=== PATIENT | female | born 1965 | race Caucasian/White ===

== ENCOUNTER 2016-12-05 10:55 | Emergency (ER) | payer BC ==
[2016-12-05 13:37] VITALS: BP 131/76
--- NOTE | 2016-12-05 13:44 | UC ---
UC General HPI - HPI Summary HPI Summary: Patient hs had flu like symptoms, sore throat cough, body ahces for the past few days, yesterday felt a little better but worse today. she is afebrile - History of Current Complaint Chief Complaint: UCRespiratory Stated Complaint: FLU SYMPTOMS Time Seen by Provider: 12/05/16 13:20 Hx Obtained From: Patient Onset/Duration: Sudden Onset, Lasting Days Timing: Constant Onset Severity: Moderate Current Severity: Moderate Associated Signs & Symptoms: Positive: Headache - Allergy/Home Medications Allergies/Adverse Reactions: Allergies Allergy/AdvReac Type Severity Reaction Status Date / Time No Known Allergies Allergy Verified 12/05/16 13:30 PMH/Surg Hx/FS Hx/Imm Hx Previously Healthy: Yes - Surgical History Surgical History: Yes Surgery Procedure, Year, and Place: tonsils, appy arthroscopic b/ knees - Family History Known Family History: Positive: Hypertension - Social History Alcohol Use: Occasionally Substance Use Type: None Smoking Status (MU): Never Smoked Tobacco - Immunization History Most Recent Tetanus Shot: unknown Review of Systems Constitutional: Fatigue Skin: Negative Eyes: Negative ENT: Sore Throat, Ear Ache, Nasal Discharge Respiratory: Cough Cardiovascular: Negative Gastrointestinal: Negative Genitourinary: Negative Motor: Negative Neurovascular: Negative Musculoskeletal: Myalgia Neurological: Headache Psychological: Negative All Other Systems Reviewed And Are Negative: Yes Physical Exam Triage Information Reviewed: Yes Appearance: Well-Nourished, Ill-Appearing, Pain Distress Vital Signs: Initial Vital Signs Temp 98.7 F 12/05/16 13:33 Pulse 82 12/05/16 13:33 Resp 18 12/05/16 13:33 BP 131/76 12/05/16 13:33 Pulse Ox 100 12/05/16 13:33 Vital Signs Reviewed: Yes Eye Exam: Normal Eyes: Positive: Conjunctiva Clear ENT Exam: Normal ENT: Positive: Pharyngeal erythema, Nasal congestion, TM red Dental Exam: Normal Neck exam: Normal Neck: Positive: Supple, Nontender, No Lymphadenopathy Respiratory Exam: Normal Respiratory: Positive: Chest non-tender, No respiratory distress, No accessory muscle use, Wheezing, Inspiration Cardiovascular Exam: Normal Cardiovascular: Positive: RRR, No Murmur, Pulses Normal Abdominal Exam: Normal Abdomen Description: Positive: Nontender, No Organomegaly, Soft Bowel Sounds: Positive: Present Musculoskeletal Exam: Normal Musculoskeletal: Positive: Strength Intact, ROM Intact, No Edema Neurological Exam: Normal Neurological: Positive: Alert, Muscle Tone Normal Psychological Exam: Normal Skin Exam: Normal Course/Dx - Course Course Of Treatment: hx obtained, exam performed, meds reviewed, rapid flu and strep obtained, flu b positive - Differential Dx - Multi-Symptom Provider Diagnoses: influenza B Discharge - Discharge Plan Condition: Stable Disposition: HOME Prescriptions: guaiFENesin/CODIEN 100MG-10MG* [Robitussin AC 100Mg-10Mg*] 10 ml PO BID #100 ml MDD 20 ml predniSONE TAB* [Deltasone TAB*] 40 mg PO DAILY #10 tab Patient Education Materials: Influenza (ED) Additional Instructions: take the medication as prescribed. Increase your fluid intake and get plenty of rest.
== END 2016-12-05 13:59 | disposition home or self-care (01) ==
LOC: UCCORT 10:55
DX: J11.1 Influenza due to unidentified influenza virus with other respiratory manifestations (principal)
CPT/HCPCS: 87502; 87651; 99212; G0463

== ENCOUNTER 2017-02-14 17:52 | Emergency (ER) | payer BC ==
[2017-02-14 18:00] VITALS: BP 129/76
--- NOTE | 2017-02-14 18:24 | UC ---
Lower Extremity/Ankle HPI - HPI Summary HPI Summary: While mowing was hit by rock in L leg above medial ankle. Area bled and was sore , but whole ankle/leg became more swollen and painful today. Worried about FB and infection. Denies significant hx of skin infection or problems with resistant pathogens. - History of Current Complaint Chief Complaint: MAYELINkin Stated Complaint: LEFT LEG SKIN COMPLAINT Time Seen by Provider: 02/14/17 18:05 Hx Obtained From: Patient Hx Last Menstrual Period: 4-5 yrs ?: No Onset/Duration: Sudden Onset Severity Initially: Mild Severity Currently: Moderate Aggravating Factor(s): Standing, Ambulation Alleviating Factor(s): Rest Able to Bear Weight: Yes - Allergies/Home Medications Allergies/Adverse Reactions: Allergies Allergy/AdvReac Type Severity Reaction Status Date / Time No Known Allergies Allergy Verified 02/14/17 18:00 PMH/Surg Hx/FS Hx/Imm Hx Previously Healthy: Yes - Surgical History Surgical History: Yes Surgery Procedure, Year, and Place: tonsils, appy, arthroscopic b/ knees - Family History Known Family History: Positive: Hypertension - Social History Occupation: Employed Full-time Alcohol Use: Occasionally Substance Use Type: None Smoking Status (MU): Never Smoked Tobacco - Immunization History Most Recent Tetanus Shot: unknown Review of Systems Constitutional: Negative Skin: Bruising, Other - abrasions, redness Eyes: Negative ENT: Negative Respiratory: Negative Cardiovascular: Negative Gastrointestinal: Negative Genitourinary: Negative Motor: Negative Neurovascular: Negative Musculoskeletal: Negative Neurological: Negative Psychological: Negative All Other Systems Reviewed And Are Negative: Yes Physical Exam Triage Information Reviewed: Yes Appearance: Well-Appearing, No Pain Distress, Well-Nourished Vital Signs: Initial Vital Signs Temp 98.1 F 02/14/17 17:57 Pulse 74 02/14/17 17:57 Resp 16 02/14/17 17:57 BP 129/76 02/14/17 17:57 Pulse Ox 100 02/14/17 17:57 Vital Signs Reviewed: Yes Eye Exam: Normal Eyes: Positive: Conjunctiva Clear ENT Exam: Normal ENT: Positive: Normal ENT inspection, Hearing grossly normal, Pharynx normal, TMs normal Lower Extremity Course/Dx - Differential Dx/Diagnosis Provider Diagnoses: L lower leg subcutaneous foreign body. L lower leg cellulitis. elevated blood pressure due to discomfort Discharge - Discharge Plan Condition: Stable Disposition: HOME Prescriptions: Cephalexin CAP* [Keflex 500 CAP*] 500 mg PO QID #28 cap Patient Education Materials: Soft Tissue Foreign Body (ED), Cellulitis (ED) Referrals: Naveed Roman MD [Primary Care Provider] - Forrest Osborn MD [Medical Doctor] - 1 Week Additional Instructions: As we discussed, the foreign body in your skin may not need to be removed if it is something inert, like stone, and your infection can be completely cured with oral antibiotics. However, pain, swelling, or repeated infection may require that you have the object removed. Please follow up with the surgeon's office when you can get an appointment. If you do not see clear and marked improvement in your pain, swelling, and skin tenderness within 72 hours, please return here for a recheck.
--- NOTE | 2017-02-14 18:40 | RAD ---
INDICATION: Injury. Evaluate for foreign body COMPARISON: None TECHNIQUE: AP and lateral views were obtained. FINDINGS: There is a linear 8 x 2 mm radiopaque foreign body in the medial soft tissues of the mid to distal leg. The foreign body is approximately 8 mm deep to the skin surface and is at the level of the entrance wound which is indicated by a marker. The osseous structures are normal. IMPRESSION: FOREIGN BODIES DESCRIBED
== END 2017-02-14 18:57 | disposition home or self-care (01) ==
LOC: UCCORT 17:52
DX: S80.852A Superficial foreign body, left lower leg, initial encounter (principal); L03.116 Cellulitis of left lower limb; W20.8XXA Other cause of strike by thrown, projected or falling object, initial encounter; Y93.H9 Activity, other involving exterior property and land maintenance, building and construction; Y92.9 Unspecified place or not applicable
CPT/HCPCS: 99212; G0463

== ENCOUNTER 2017-11-08 12:52 | Emergency (ER) | payer BC ==
[2017-11-08 13:13] VITALS: BP 123/72
--- NOTE | 2017-11-08 13:29 | UC ---
Dizzy HPI HPI Summary: dizziness x 1 day started this morning, room spinning worse with head movement and rotation no nausea or vomiting, no cold sx, no fever, no chills - History Of Current Complaint Chief Complaint: UCEar Stated Complaint: DIZZY/EAR COMPLAINT Time Seen by Provider: 11/08/17 13:08 Hx Obtained From: Patient Hx Last Menstrual Period: 4-5 yrs Onset/Duration: Gradual Onset, Lasting Days - 1, Still Present Timing: Constant Severity Initially: Moderate Severity Currently: Moderate Pain Intensity: 0 Character: Room Spinning, Dizzy Aggravating Factor(s): Exertion Alleviating Factor(s): Rest Associated Signs And Symptoms: Negative: Nausea, Vomiting, Diaphoresis, Tinnitus , Chest Pain, SOB, Palpitations, Unsteady Gait, Visual Changes, Decreased Oral Intake, Change In Medication, Change In Diet, OTC Medications - Allergies/Home Medications Allergies/Adverse Reactions: Allergies Allergy/AdvReac Type Severity Reaction Status Date / Time No Known Allergies Allergy Verified 11/08/17 13:08 PMH/Surg Hx/FS Hx/Imm Hx - Additional Past Medical History Additional PMH: fibromyalgia - Surgical History Surgical History: Yes Surgery Procedure, Year, and Place: tonsils, appy, arthroscopic b/ knees - Family History Known Family History: Positive: Hypertension - Social History Alcohol Use: Occasionally Substance Use Type: None Smoking Status (MU): Never Smoked Tobacco - Immunization History Most Recent Tetanus Shot: none since d/t bad rxn Review of Systems Constitutional: Negative Skin: Negative Eyes: Negative ENT: Negative Respiratory: Negative Cardiovascular: Negative Is Patient Immunocompromised?: No All Other Systems Reviewed And Are Negative: Yes Physical Exam Triage Information Reviewed: Yes Appearance: Well-Appearing, No Pain Distress, Well-Nourished Vital Signs: Initial Vital Signs Temp 97.8 F 11/08/17 13:09 Pulse 79 11/08/17 13:09 Resp 16 11/08/17 13:09 BP 123/72 11/08/17 13:09 Pulse Ox 100 11/08/17 13:09 Vital Signs Reviewed: Yes Eyes: Positive: Conjunctiva Clear ENT: Positive: Normal ENT inspection, Hearing grossly normal, Pharynx normal, TMs normal. Negative: Nasal congestion, Nasal drainage, TM bulging, TM dull, TM red, Tonsillar swelling, Tonsillar exudate Neck exam: Normal Neck: Positive: Supple, Nontender, No Lymphadenopathy Respiratory: Positive: Chest non-tender, Lungs clear, Normal breath sounds Cardiovascular: Positive: RRR, No Murmur, Pulses Normal Abdominal Exam: Normal Abdomen Description: Positive: Nontender, Soft. Negative: CVA Tenderness (R), CVA Tenderness (L), Distended, Guarding Bowel Sounds: Positive: Present Neurological Exam: Normal Neurological: Positive: Alert UC Physical Exam Vital Signs On Initial Exam: Initial Vitals Temp Pulse Resp BP Pulse Ox 97.8 F 79 16 123/72 100 11/08/17 13:09 11/08/17 13:09 11/08/17 13:09 11/08/17 13:09 11/08/17 13:09 - Neurological Exam Neurological: Normal, Sensory/Motor Intact, Alert, Oriented to Person Place, Time, CN Intact II-III, Reflexes Intact, Normal Gait, Speech Normal Dizzy Course/Dx - Differential Dx/Diagnosis Provider Diagnoses: vertigo Discharge - Discharge Plan Condition: Stable Disposition: HOME Prescriptions: Meclizine TAB* [Antivert 12.5 TAB*] 25 mg PO TID PRN #21 tab PRN Reason: Dizziness Patient Education Materials: Vertigo (ED) Referrals: Naveed Roman MD [Primary Care Provider] - 5 Days
== END 2017-11-08 13:30 | disposition home or self-care (01) ==
LOC: UCCORT 12:52
DX: R42 Dizziness and giddiness (principal); M79.7 Fibromyalgia
CPT/HCPCS: 99212; G0463

== ENCOUNTER 2018-01-24 17:07 | Emergency (ER) | payer BC ==
[2018-01-24 18:18] VITALS: BP 122/71
--- NOTE | 2018-01-24 19:03 | UC ---
UC General HPI - HPI Summary HPI Summary: pt is c/o 5 day hx sinus congestion and a sore throat. she noted the drainage has become very colored plus she now has a fever and is feeling much worse. she has a hx of sinus infections but not in past year and this feels the same. - History of Current Complaint Chief Complaint: UCGeneralIllness Stated Complaint: SINUSES, SORE THROAT Time Seen by Provider: 01/24/18 18:57 Hx Obtained From: Patient Hx Last Menstrual Period: 4-5 yrs Onset/Duration: Gradual Onset Timing: Constant Pain Intensity: 6 Aggravating: nothing Alleviating: nothing Associated Signs & Symptoms: Positive: Fever - Allergy/Home Medications Allergies/Adverse Reactions: Allergies Allergy/AdvReac Type Severity Reaction Status Date / Time No Known Allergies Allergy Verified 01/24/18 18:16 PMH/Surg Hx/FS Hx/Imm Hx - Additional Past Medical History Additional PMH: sinusitis Psychological History: Depression - Surgical History Surgical History: Yes Surgery Procedure, Year, and Place: tonsils, appy, arthroscopic b/ knees - Family History Known Family History: Positive: Hypertension - Social History Occupation: Employed Full-time Alcohol Use: Occasionally Substance Use Type: None Smoking Status (MU): Never Smoked Tobacco - Immunization History Most Recent Tetanus Shot: none since d/t bad rxn Vaccination Up to Date: Yes Review of Systems Constitutional: Fever Skin: Negative Eyes: Negative ENT: Sore Throat, Nasal Discharge, Sinus Congestion, Sinus Pain/Tenderness Respiratory: Negative Cardiovascular: Negative Gastrointestinal: Negative Genitourinary: Negative Motor: Negative Neurovascular: Negative Musculoskeletal: Myalgia Neurological: Negative Psychological: Negative Is Patient Immunocompromised?: No All Other Systems Reviewed And Are Negative: Yes Physical Exam Triage Information Reviewed: Yes Appearance: Well-Appearing Vital Signs: Initial Vital Signs Temp 98.1 F 01/24/18 18:11 Pulse 83 01/24/18 18:11 Resp 17 01/24/18 18:11 BP 122/71 01/24/18 18:11 Pulse Ox 98 01/24/18 18:11 Vital Signs Reviewed: Yes Eyes: Positive: Conjunctiva Clear ENT: Positive: Pharynx normal, Nasal congestion, TMs normal, Sinus tenderness. Negative: Nasal drainage Neck: Positive: Supple, Nontender, No Lymphadenopathy Respiratory: Positive: Lungs clear, Normal breath sounds Cardiovascular: Positive: RRR, No Murmur Abdomen Description: Positive: Nontender, No Organomegaly, Soft Bowel Sounds: Positive: Present Musculoskeletal: Positive: ROM Intact Neurological: Positive: Alert Psychological: Positive: Age Appropriate Behavior Skin Exam: Normal Course/Dx - Course Course Of Treatment: short duration of illness; however, pt is abruptly worse and is c/o fever thus will cover for bacterial infection. - Differential Dx - Multi-Symptom Provider Diagnoses: sinusitis Discharge - Sign-Out/Discharge Documenting (check all that apply): Discharge/Admit/Transfer - Discharge Plan Condition: Stable Disposition: HOME Prescriptions: Amoxicillin/Clavulanate TAB* [Augmentin TAB 875*] 875 mg PO BID #20 tab Patient Education Materials: Sinusitis (ED) Referrals: Naveed Roman MD [Primary Care Provider] - 7 Days - Billing Disposition and Condition Condition: STABLE Disposition: HOME
== END 2018-01-24 19:14 | disposition home or self-care (01) ==
LOC: UCCORT 17:07
DX: J32.9 Chronic sinusitis, unspecified (principal); F32.9 Major depressive disorder, single episode, unspecified; Z82.49 Family history of ischemic heart disease and other diseases of the circulatory system
CPT/HCPCS: 99212; G0463

== ENCOUNTER 2018-08-14 16:49 | Emergency (ER) | payer BC ==
[2018-08-14 17:41] VITALS: BP 142/83
--- NOTE | 2018-08-14 17:58 | ED ---
Throat Pain/Nasal Congestion - HPI Summary HPI Summary: 53 yr old with the complaint of sinus pressure, post nasal drip. Onset of symptoms a little over a week ago. The patient has had several ill exposures. The patient denies fever, chills. She has had coughing yellow sputum, and persistent post nasal drip. Mild voice hoarseness as well. - History of Current Complaint Chief Complaint: UCRespiratory Time Seen by Provider: 08/14/18 17:47 - Allergies/Home Medications Allergies/Adverse Reactions: Allergies Allergy/AdvReac Type Severity Reaction Status Date / Time No Known Allergies Allergy Verified 08/14/18 17:39 PMH/Surg Hx/FS Hx/Imm Hx - Surgical History Surgery Procedure, Year, and Place: tonsils, appy, arthroscopic b/ knees Infectious Disease History: No Infectious Disease History: Denies: Traveled Outside the [place] in Last 30 Days - Family History Known Family History: Positive: Hypertension - Social History Occupation: Employed Full-time Alcohol Use: Occasionally Substance Use Type: Reports: None Smoking Status (MU): Never Smoked Tobacco Review of Systems Constitutional: Negative Positive: Nasal Discharge Positive: Cough All Other Systems Reviewed And Are Negative: Yes Physical Exam Triage Information Reviewed: Yes Vital Signs On Initial Exam: Initial Vitals Temp Pulse Resp BP Pulse Ox 98.4 F 85 16 142/83 98 08/14/18 17:39 08/14/18 17:39 08/14/18 17:39 08/14/18 17:39 08/14/18 17:39 Vital Signs Reviewed: Yes Appearance: Positive: Well-Appearing, No Pain Distress Skin: Positive: Warm, Skin Color Reflects Adequate Perfusion Head/Face: Positive: Normal Head/Face Inspection Eyes: Positive: EOMI ENT: Positive: Pharynx normal, Nasal congestion, Nasal drainage, TMs normal, Sinus tenderness Neck: Positive: Nontender Respiratory/Lung Sounds: Positive: Clear to Auscultation, Breath Sounds Present Cardiovascular: Positive: RRR. Negative: Murmur Abdomen Description: Positive: Nontender Musculoskeletal: Positive: Strength/ROM Intact Neurological: Positive: Sensory/Motor Intact, Alert, Oriented to Person Place, Time, CN Intact II-III, Normal Gait, Speech Normal - [place] Coma Scale Best Eye Response: 4 - Spontaneous Best Motor Response: 6 - Obeys Commands Best Verbal Response: 5 - Oriented Coma Scale Total: 15 Diagnostics - Vital Signs Vital Signs Temp Pulse Resp BP Pulse Ox 08/14/18 17:39 98.4 F 85 16 142/83 98 - Laboratory Lab Statement: Any lab studies that have been ordered have been reviewed, and results considered in the medical decision making process. EENT Course/Dx - Course Course Of Treatment: 53 yr old with sinusitis. Rx with Cefdinir. - Diagnoses Provider Diagnoses: Sinusitis, Hypertension Discharge - Sign-Out/Discharge Documenting (check all that apply): Patient Departure All imaging exams completed and their final reports reviewed: No Studies - Discharge Plan Condition: Good Disposition: HOME Prescriptions: Cefdinir [Cefdinir 300 MG CAP] 300 mg PO BID #20 cap Patient Education Materials: Sinusitis (ED), Hypertension (ED) Referrals: Naveed Roman MD [Primary Care Provider] - 2 Days - Billing Disposition and Condition Condition: GOOD Disposition: Home
== END 2018-08-14 18:00 | disposition home or self-care (01) ==
LOC: UCCORT 16:49
DX: J32.9 Chronic sinusitis, unspecified (principal); I10 Essential (primary) hypertension
CPT/HCPCS: 99212; G0463

== ENCOUNTER 2018-08-19 10:13 | Emergency (ER) | payer BC ==
[2018-08-19 12:37] VITALS: BP 128/67
--- NOTE | 2018-08-19 12:48 | UC ---
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 - History of Current Complaint Chief Complaint: UCRespiratory Stated Complaint: RECHECK - FEVER,COUGH,SINUSES Time Seen by Provider: 08/19/18 12:37 Hx Obtained From: Patient Hx Last Menstrual Period: 4-5 yrs ?: No Onset/Duration: Sudden Onset Pain Intensity: 6 Pain Scale Used: 0-10 Numeric Cough: Nonproductive Associated Signs & Symptoms: Positive: Wheezing, Sinus Discomfort, Nasal Discharge - Allergies/Home Medications Allergies/Adverse Reactions: Allergies Allergy/AdvReac Type Severity Reaction Status Date / Time No Known Allergies Allergy Verified 08/19/18 12:32 PMH/Surg Hx/FS Hx/Imm Hx Previously Healthy: No - fibromyalgia - Surgical History Surgical History: Yes Surgery Procedure, Year, and Place: tonsils, appy, arthroscopic b/ knees - Family History Known Family History: Positive: Hypertension - Social History Occupation: Employed Full-time Lives: With Family Alcohol Use: Occasionally Substance Use Type: None Smoking Status (MU): Never Smoked Tobacco - Immunization History Most Recent Tetanus Shot: none since d/t bad rxn Vaccination Up to Date: Yes Review of Systems All Other Systems Reviewed And Are Negative: Yes Constitutional: Positive: Fever, Chills Skin: Positive: Negative Eyes: Positive: Negative ENT: Positive: Sinus Pain/Tenderness Respiratory: Positive: Cough Cardiovascular: Positive: Negative Gastrointestinal: Positive: Negative Genitourinary: Positive: Negative Motor: Positive: Negative Neurovascular: Positive: Negative Musculoskeletal: Positive: Negative Neurological: Positive: Negative Psychological: Positive: Negative Is Patient Immunocompromised?: No Physical Exam Triage Information Reviewed: Yes Appearance: No Pain Distress, Well-Nourished, Ill-Appearing Vital Signs: Initial Vital Signs Temp 97.7 F 08/19/18 12:33 Pulse 72 08/19/18 12:33 Resp 16 08/19/18 12:33 BP 128/67 08/19/18 12:33 Pulse Ox 100 08/19/18 12:33 Vital Signs Reviewed: Yes Eye Exam: Normal Eyes: Positive: Conjunctiva Clear ENT Exam: Normal ENT: Positive: Normal ENT inspection, Hearing grossly normal, Pharynx normal, Nasal congestion, TMs normal, Sinus tenderness, Uvula midline. Negative: Tonsillar swelling, Tonsillar exudate, Trismus, Muffled voice, Hoarse voice, Dental tenderness Dental Exam: Normal Neck exam: Normal Neck: Positive: Supple, Nontender, No Lymphadenopathy Respiratory Exam: Normal Respiratory: Positive: Chest non-tender, No respiratory distress, No accessory muscle use, Wheezing - right lower lobe Cardiovascular Exam: Normal Cardiovascular: Positive: RRR, No Murmur, Pulses Normal, Brisk Capillary Refill Musculoskeletal Exam: Normal Musculoskeletal: Positive: Strength Intact, ROM Intact, No Edema Neurological Exam: Normal Neurological: Positive: Alert, Muscle Tone Normal Psychological Exam: Normal Skin Exam: Normal Diagnostics - Radiology No standard instances Radiology Interpretation Completed By: Radiologist - no infiltrations Re-Evaluation - Re-Evaluation First Eval Change: Improved - feels better after neb--wheeze resolved Throat Pain/Nasal Course/Dx - Course Assessment/Plan: finish antibiodic, increase fluids, flonase and albuterol follow with pcp prn - Differential Dx/Diagnosis Provider Diagnosis: Acute bronchospasm due to viral infection, Sinusitis chronic, frontal Discharge - Sign-Out/Discharge Documenting (check all that apply): Patient Departure All imaging exams completed and their final reports reviewed: Yes - Discharge Plan Condition: Stable Disposition: HOME Prescriptions: Albuterol HFA INHALER* [Ventolin HFA Inhaler*] 2 puff INH Q4H PRN #1 mdi PRN Reason: cough/wheeze/chest tightness Fluticasone NASAL SPRAY 50MCG* [Flonase NASAL SPRAY 50MCG*] 2 spray BOTH NARES DAILY #1 btl Patient Education Materials: Upper Respiratory Infection (ED), How to Use a Metered-Dose Inhaler and a Spacer (ED), Nasal Rinse (ED), How to Use Nasal [place] (ED) Referrals: Naveed Roman MD [Primary Care Provider] - If Needed - Billing Disposition and Condition Condition: STABLE Disposition: Home - Attestation Statements Provider Attestation: I was available for consult. This patient was seen by the SANJANA. The patient was not presented to, seen by, or examined by me. EK
[2018-08-19] MEDS ORDERED: Albuterol/Ipratropium NEB.SOL* Albuterol 2.5 MG/Ipratropium 0.5 MG 3 ML INH ONE (12:54)
== END 2018-08-19 14:15 | disposition home or self-care (01) ==
LOC: UCCORT 10:13
DX: J98.01 Acute bronchospasm (principal); B34.9 Viral infection, unspecified; J32.1 Chronic frontal sinusitis
CPT/HCPCS: 71046; 99212; A9270-GY; G0463

== ENCOUNTER 2019-05-14 18:52 | Emergency (ER) | payer BC ==
--- NOTE | 2019-05-14 20:41 | UC ---
Skin Complaint HPI - HPI Summary HPI Summary: 53-year-old woman comes in with a chief complaint of right leg redness swelling and pain. 2 days ago she was bit by several ground bees. She's had swelling in that area is now getting worse and is getting more hot to the touch and erythematous. No fevers no chills. There is pain with ambulation. - History of Current Complaint Time Seen by Provider: 05/14/19 20:31 Stated Complaint: RIGHT LEG SWELLING Hx Last Menstrual Period: 4-5 yrs - Allergy/Home Medications Allergies/Adverse Reactions: Allergies Allergy/AdvReac Type Severity Reaction Status Date / Time No Known Allergies Allergy Verified 08/19/18 12:32 PMH/Surg Hx/FS Hx/Imm Hx Previously Healthy: Yes - Surgical History Surgical History: Yes Surgery Procedure, Year, and Place: tonsils, appy, arthroscopic b/ knees - Family History Known Family History: Positive: Hypertension - Social History Alcohol Use: Occasionally Substance Use Type: None Smoking Status (MU): Never Smoked Tobacco - Immunization History Most Recent Tetanus Shot: none since d/t bad rxn Vaccination Up to Date: Yes Review of Systems All Other Systems Reviewed And Are Negative: Yes Constitutional: Positive: Negative Skin: Positive: Other - SEE HPI Eyes: Positive: Negative ENT: Positive: Negative Respiratory: Positive: Negative Cardiovascular: Positive: Negative Gastrointestinal: Positive: Negative Motor: Positive: Negative Neurovascular: Positive: Negative Musculoskeletal: Positive: Other: - SEE HPI Neurological: Positive: Negative Psychological: Positive: Negative Is Patient Immunocompromised?: No Physical Exam Triage Information Reviewed: Yes Appearance: Well-Appearing, No Pain Distress, Well-Nourished Vital Signs Reviewed: Yes Eye Exam: Normal Eyes: Positive: Conjunctiva Clear Neck: Positive: Supple Respiratory: Positive: No respiratory distress Musculoskeletal: Positive: Other: - There is some swelling in the right half where the bee stings occurred. Patient does have good range of motion of the ankle and the knee although range of motion of the ankle does increase her pain. Neurological: Positive: Alert, Muscle Tone Normal Psychological: Positive: Age Appropriate Behavior Skin: Positive: Other - Right calf has an area 15 cm x 10 cm of erythema is warm to touch. No streaking. No drainage. Course/Dx - Course Course Of Treatment: We'll treat with Keflex patient's, follow-up with primary care doctor get reevaluated sooner if worse or any questions or concerns. - Diagnoses Provider Diagnosis: Bee sting, Cellulitis of leg, right Discharge ED - Sign-Out/Discharge Documenting (check all that apply): Patient Departure All imaging exams completed and their final reports reviewed: No Studies - Discharge Plan Condition: Stable Disposition: HOME Prescriptions: Cephalexin CAP* [Keflex CAP*] 500 mg PO QID #38 cap Patient Education Materials: Cellulitis (ED), Insect Bite or Sting (ED) Referrals: Naveed Roman MD [Primary Care Provider] - Additional Instructions: FOLLOW UP WITH YOUR DOCTOR IF NOT COMPLETELY IMPROVED. GO TO THE EMERGENCY DEPARTMENT IF WORSE OR ANY QUESTIONS OR CONCERNS. - Billing Disposition and Condition Condition: STABLE Disposition: Home
[2019-05-14] MEDS ORDERED: Cephalexin CAP* 500 MG PO ONE (20:42)
[2019-05-14 20:44] VITALS: BP 126/79
== END 2019-05-14 21:03 | disposition home or self-care (01) ==
LOC: UCCORT 18:52
DX: T63.441A Toxic effect of venom of bees, accidental (unintentional), initial encounter (principal); M79.89 Other specified soft tissue disorders; Y92.9 Unspecified place or not applicable; L03.115 Cellulitis of right lower limb
CPT/HCPCS: 99212; A9270-GY; G0463